=== PATIENT | female | born 1950 | race Caucasian/White ===

== ENCOUNTER → 2017-12-15 | Outpatient (CLI) | payer MEDICARE, BC ==
[~2017-12-15] MED LIST: FISH OIL 1,001000 M2 PO; LISINOPRIL-HCT1 EAC1 PO; PRILOSEC 20 MG20 MG PO; PROTONIX40 M1 PO; SYNTHROID75 MCG PO
== END ==
LOC: M.ULTRA 10:00
DX: M79.89 Other specified soft tissue disorders (principal)

== ENCOUNTER 2018-03-17 09:35 | Observation (INO) | payer MEDICARE, BC ==
[~2018-03-17] VITALS: Ht 147.3 cm; Wt 71.7 kg
[2018-03-17 09:37] VITALS: BP 104/71
[2018-03-17] MEDS ORDERED: LISINOPRIL-HCT1 EAC1 PO (09:41)
[2018-03-17] MEDS ORDERED: FISH OIL 1,001000 M2 PO (09:41)
[2018-03-17] MEDS ORDERED: PRILOSEC 20 MG20 MG PO (09:41)
[2018-03-17] MEDS ORDERED: SYNTHROID75 MCG PO (09:41)
[2018-03-17 09:50] LABS: ABSOLUTE BASOPHILS 0.1 thou/uL (0.0-0.2); ABSOLUTE EOSINOPHILS 0.3 thou/uL (0.0-0.7); ABSOLUTE LYMPHOCYTES 2.6 thou/uL (0.8-5.3); ABSOLUTE MONOCYTES 0.8 thou/uL (0.0-1.2); ABSOLUTE NEUTROPHILS 4.7 thou/uL (1.6-8.1); EOSINOPHILS 3.1 %; HEMATOCRIT 44.2 % (37.0-47.0); HEMOGLOBIN 15.2 gm/dL (12.0-15.0); LYMPHOCYTES 30.7 %; MCH 29.5 pg (26.0-34.0); MCHC 34.4 g/dL (28.0-37.0); MCV 85.9 fL (80.0-100.0); MONOCYTES 9.5 %; MPV 6.4 fl. (7.2-11.1); NUCLEATED RBCS 0 /100WBC; PLATELET COUNT* 359 thou/uL (150-400); POLYS 55.7 %; RBC 5.15 mil/uL (4.20-5.00); RDW-CV 13.4 % (10.5-14.5); WBC 8.3 thou/uL (4.0-11.0)
[2018-03-17 09:57] LABS: ANION GAP 8 mmol/L (7-16); BUN 17 mg/dL (7-18); CALCIUM 8.8 mg/dL (8.5-10.1); CHLORIDE 92 mmol/L (98-107); CO2 28 mmol/L (21-32); CREATININE 1.1 mg/dL (0.6-1.3); GLUCOSE 119 mg/dL (70-99); POTASSIUM 3.9 mmol/L (3.5-5.1); SODIUM 128 mmol/L (136-145)
[2018-03-17 10:03] LABS: ALKALINE PHOSPHATASE 63 U/L (46-116); LIPASE 157 U/L (73-393); MAGNESIUM 1.6 mg/dL (1.8-2.4); SGOT 24 U/L (15-37); SGPT 37 U/L (30-65); TOTAL BILIRUBIN 0.6 mg/dL (<0.1-1.0); TOTAL PROTEIN 8.1 g/dL (6.4-8.2); TROPONIN-I LEVEL <0.06 ng/mL (<0.06)
[2018-03-17 12:05] VITALS: BP 97/51
--- NOTE | 2018-03-17 15:14 | EKG ---
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 : 1950 Requested By: Dk Rosales Order Number: [id number] MD: Unruly Albarado Measurements Intervals [place] Rate: 93 P: 71 FL: 152 QRS: 54 QRSD: 84 T: 34 QT: 333 QTc: 415 Interpretive Statements Sinus rhythm LAE, consider biatrial enlargement Low voltage, extremity and precordial leads Baseline wander in lead(s) V5 No previous ECG available for comparison Electronically Signed On 03-17-2018 15:14:40 CDT by Unruly Albarado [email or web address] <ELECTRONICALLY SIGNED> By: Unruly Albarado MD, [facility] 03/17/18 1514 0940 0940 Unruly Albarado MD, [facility] /EPI
[2018-03-17 15:16] VITALS: BP 90/53
--- NOTE | 2018-03-17 15:56 | 2DMMODE ---
[place] [address] 2 D/M-MODE ECHOCARDIOGRAM Name: TREY APODACA Room: [address] IN .R.#: [id number] Admission: 03/17/18 Attend Phys: Erickson Chapa Discharge: Date of : 48 Date of Service: 03/17/18 1556 Report #: [id number] THIS REPORT FOR: //name// APPROVED REPORT Study performed: 03/17/2018 14:11:33 EXAM: Comprehensive 2D, Doppler, and color-flow Echocardiogram Patient Location: Bedside BSA: 1.65 HR: 66 bpm BP: 97/51 mmHg Other Information Study Quality: Fair Indications Chest Pain 2D Dimensions LVEF(%): 67.14 (>50%) IVSd: 8.56 (7-11mm) LVOT Diam: 18.01 (18-24mm) LVDd: 37.49 mm PWd: 7.90 (7-11mm) Ascending Ao: 24.23 (22-36mm) LVDs: 23.78 (25-40mm) Aortic Root: 25.36 mm Vogel's LVEF: 67.14 % Volumes Left Atrial Volume (Systole) LA ESV Index: 18.80 mL/m2 Aortic Valve AoV Peak Wil.: 1.37 m/s AO Peak Gr.: 7.50 mmHg LVOT Max P.82 mmHg AO Mean Gr.: 3.01 mmHg LVOT Mean P.52 mmHg LVOT Max V: 1.21 m/s AO V2 VTI: 24.04 cm LVOT Mean V: 0.71 m/s GLORIA (VTI): 2.65 cm2 LVOT V1 VTI: 25.06 cm Mitral Valve E/A Ratio: 1.32 MV Decel. Time: 209.27 ms MV E Max Wil.: 0.87 m/[place] [address] 2 D/M-MODE ECHOCARDIOGRAM Name: TREY APODACA Room: [address] IN [facility]#: [id number] Admission: 03/17/18 Attend Phys: Erickson Chapa Discharge: Date of : 48 Date of Service: 03/17/18 1556 Report #: [id number] MV PHT: 60.69 ms MVA (PHT): 3.63 cm2 TDI E/Lateral E': 10.88 E/Medial E': 9.67 Medial E' Wil.: 0.09 m/s Lateral E' Wil.: 0.08 m/s Pulmonary Valve PV Peak Wil.: 0.86 m/s PV Peak Gr.: 2.98 mmHg Tricuspid Valve RAP Estimate: 5.00 mmHg TR Peak Gr.: 25.19 mmHg RVSP: 30.19 mmHg PA Pressure: 30.19 mmHg Left Ventricle The left ventricle is normal size. There is normal LV segmental wall motion. There is normal left ventricular wall thickness. Left ventricular systolic function is normal. LVEF is 60-65%. The left ventricular diastolic function is normal. Right Ventricle The right ventricle is normal size. The right ventricular systolic function is normal. Atria The left atrium size is normal. Lipomatous hypertrophy of the interatrial septum is noted. The right atrium size is normal. Aortic Valve The aortic valve is normal in structure. No aortic regurgitation is present. There is no aortic valvular stenosis. Mitral Valve The mitral valve is normal in structure. Trace mitral regurgitation. No evidence of mitral valve stenosis. Tricuspid Valve The tricuspid valve is normal in structure. Mild tricuspid regurgitation. Pulmonic Valve The pulmonary valve is normal in structure. [place] [address] 2 D/M-MODE ECHOCARDIOGRAM Name: TREY APODACA Room: [address] IN [facility]#: [id number] Admission: 03/17/18 Attend Phys: Erickson Chapa Discharge: Date of : 48 Date of Service: 03/17/18 1556 Report #: [id number] Great Vessels The aortic root is normal in size. IVC is normal in size and collapses with >50% inspiration Pericardium There is no pericardial effusion. <Conclusion> The left ventricle is normal size. There is normal left ventricular wall thickness. Left ventricular systolic function is normal. LVEF is 60-65%. The left ventricular diastolic function is normal. Mild tricuspid regurgitation. IVC is normal in size and collapses with >50% inspiration <ELECTRONICALLY SIGNED> By: Masoud Dias MD, [facility] 03/17/18 1556 1556 1556 Masoud Dias MD, FAC /INF
[2018-03-17 20:00] VITALS: BP 115/66
[2018-03-18 06:36] VITALS: BP 95/52
[2018-03-18 08:00] VITALS: BP 106/80
[2018-03-18] MEDS ORDERED: PROTONIX40 M1 PO (09:43)
[2018-03-18 12:12] VITALS: BP 112/61
[2018-03-18 14:32] VITALS: BP 112/61
[2018-03-18 15:51] VITALS: BP 96/51
--- NOTE | 2018-03-18 16:21 | CARDNUC ---
[place] [address] CARDIAC NUCLEAR IMAGING REPORT Name: TREY APODACA Room: [address]R.#: [id number] Admission: 03/17/18 Attend Phys: Erickson Chapa Discharge: Date of : 48 Date of Service: 03/18/18 1620 Report #: [id number] THIS REPORT FOR: //name// APPROVED REPORT Study performed: 03/17/2018 13:02:00 Indication: Chest pain Patient Location: In-Patient Room #: 228 Stress Tech: Verito Champion Stress Nurse: Arin Cueva RN Ht: 4 ft 10 in Wt: 158 lbs BSA: 1.65 m2 BMI: 33.01 Medical History Medical History: hyperlipidemia, hypertension, Medications: aspirin 325, lisinopril Allergies: erythromycin, tetracycline,levofloxacin Cardiac Risk Factors: age, hyperlipidemia, hypertension, tobacco Previous Cardiac Procedures: none Exercise History: Sedentary Resting Data Rest SPECT myocardial perfusion imaging was performed in supine position 30 minutes following the intravenous injection of 10.6 mCi of Tc-99m Sestamibi. Time of rest injection: 10:05 The images were gated to evaluate regional wall motion and calculate left ventricular ejection fraction. Administration Route: IV Administration Site: Left AC Pharmacologic Stress Pharmacologic stress test was performed by injecting Regadenoson 0.4 mg IV push over 10-15 seconds immediately followed by the intravenous injection of 33.6 mCi of Tc-99m Sestamibi. Time of stress injection: 11:45 Time of stress imagin:00 Administration Route: IV Administration Site: Left AC Heart Rate at time of stress injection: 104 bpm. The images were gated to evaluate regional wall [place] [address] CARDIAC NUCLEAR IMAGING REPORT Name: APODACATREY Room: [address]#: [id number] Admission: 03/17/18 Attend Phys: Erickson Chapa Discharge: Date of : 48 Date of Service: 03/18/18 1620 Report #: [id number] left ventricular ejection fraction. Prone imaging was performed. Stress Test Details Stress Test: Pharmacologic stress testing performed using 0.4 mg of regadenoson per 5 mL given IV over 10 seconds. Reversal agent Aminophyline 100 mg, given intravenously for nausea. HR Resting HR: 63 bpm Max Heart Rate (APMHR): 151 bpm Max HR Achieved: 104 bpm Target HR (85% APMHR): 128 bpm % of APMHR: 68 Recovery HR: 78 bpm BP Resting BP: 108/62 mmHg Max BP: 101/63 mmHg ECG Resting ECG: Sinus Rhythm, normal EKG Stress ECG: Sinus Tachycardia ST Change: None Arrhythmia: None Recovery ECG: Sinus Rhythm, normal EKG Recovery ST Change: None Recovery Arrhythmia: None Clinical Reason for Termination: Completed protocol Exercise duration: 0 min sec Exercise capacity: 1 METs The patient had hypotension related to medication the neck. She had no chest pain with Lexiscan infusion. Nurse Comments pt initial bp was 83/61 rechecked manually 108/70. iv bolus ns 200 ml given. pt given water to drink. pt bp was stable. aminophylline given for nausea Stress ECG Conclusion The baseline 12-lead electrocardiogram showed normal sinus rhythm with abnormalities. EKGs obtained during and post Lexiscan infusion showed sinus rhythm and sinus tachycardia with no significant ST or T wave changes when compared to baseline. There were no significant stress-[place] [address] CARDIAC NUCLEAR IMAGING REPORT Name: TREY APODACA [address]#: [id number] Admission: 03/17/18 Attend Phys: Erickson Chapa Discharge: Date of : 48 Date of Service: 03/18/18 1620 Report #: [id number] Study Quality Study: Good Artifact: No artifact Study Data At rest, the left ventricular ejection fraction was 82%.. Post stress, the left ventricular ejection was 89%.. TID = 1.21. Perfusion Normal left ventricular perfusion. Wall Motion Normal left ventricular wall motion. Nuclear Conclusion ECG Findings: negative for ischemia Clinical Findings: negative for ischemia Nuclear Findings: negative for ischemia Exercise Capacity: not assessed Left Ventricular Function: normal Risk Study: low Myocardial perfusion images show no defect to suggest infarct or ischemia. Left ventricular systolic function is normal on gated studies. This is a low risk study. <Conclusion> The baseline 12-lead electrocardiogram showed normal sinus rhythm with abnormalities. EKGs obtained during and post Lexiscan infusion showed sinus rhythm and sinus tachycardia with no significant ST or T wave changes when compared to baseline. There were no significant stress-induced arrhythmias. <ELECTRONICALLY SIGNED> By: Masoud Dias MD, FACC 03/18/18 1620 162 1620 Masoud Dias MD, FACC /INF
== END 2018-03-18 18:20 | disposition home or self-care (01) ==
LOC: M.ERS 09:35 → M.2W 10:53 → M.TBA-ER 10:53 → M.2W 12:12
PROVIDERS: Emergency Medicine Emergency Medical Services; ADMIT Internal Medicine
DX: K21.0 Gastro-esophageal reflux disease with esophagitis (principal); R07.9 Chest pain, unspecified; E87.1 Hypo-osmolality and hyponatremia; I10 Essential (primary) hypertension; E03.9 Hypothyroidism, unspecified; R06.02 Shortness of breath; F17.210 Nicotine dependence, cigarettes, uncomplicated; Z98.890 Other specified postprocedural states; Z90.710 Acquired absence of both cervix and uterus

== ENCOUNTER → 2018-06-08 | Outpatient (CLI) | payer MEDICARE, BC | LOC: M.ULTRA 07:56 | DX: R10.13 Epigastric pain (principal); I10 Essential (primary) hypertension; K21.9 Gastro-esophageal reflux disease without esophagitis; E03.9 Hypothyroidism, unspecified ==

== ENCOUNTER → 2018-07-13 | Outpatient (CLI) | payer MEDICARE, BC | LOC: M.NUC 07:33 | DX: R11.0 Nausea (principal); R10.9 Unspecified abdominal pain; R93.2 Abnormal findings on diagnostic imaging of liver and biliary tract; K21.9 Gastro-esophageal reflux disease without esophagitis; F17.210 Nicotine dependence, cigarettes, uncomplicated ==

== ENCOUNTER → 2019-07-26 | Outpatient (CLI) | payer MEDICARE, BC | LOC: M.RAD 06-29 15:00 | DX: Z12.31 Encounter for screening mammogram for malignant neoplasm of breast (principal); N91.2 Amenorrhea, unspecified; Z88.8 Allergy status to other drugs, medicaments and biological substances; Z78.0 Asymptomatic menopausal state ==

== ENCOUNTER 2019-09-18 10:02 | Inpatient (IN) | payer MEDICARE, BC ==
[~2019-09-18] VITALS: Ht 147.3 cm; Wt 71.7 kg
[2019-09-18 10:05] VITALS: BP 105/65
[2019-09-18 10:19] LABS: URINE BILIRUBIN NEGATIVE (Negative); URINE BLOOD NEGATIVE (Negative); URINE CLARITY CLEAR; URINE COLOR YELLOW; URINE GLUCOSE-RANDOM NEGATIVE (Negative); URINE KETONES NEGATIVE (Negative); URINE LEUKOCYTES-REFLEX NEGATIVE (Negative); URINE NITRITE-REFLEX NEGATIVE (Negative); URINE PROTEIN NEGATIVE (Negative); URINE UROBILINOGEN 0.2 E.U./dl (0.2-1.0)
[2019-09-18 10:41] LABS: ABSOLUTE BASOPHILS 0.1 thou/uL (0.0-0.2); ABSOLUTE EOSINOPHILS 0.1 thou/uL (0.0-0.7); ABSOLUTE MONOCYTES 0.6 thou/uL (0.0-1.2); ABSOLUTE NEUTROPHILS 5.4 thou/uL (1.6-8.1); BASOPHILS 1.2 %; HEMATOCRIT 42.6 % (37.0-47.0); HEMOGLOBIN 14.7 gm/dL (12.0-15.0); LYMPHOCYTES 24.2 %; MCH 29.7 pg (26.0-34.0); MCHC 34.6 g/dL (28.0-37.0); MONOCYTES 7.7 %; MPV 6.8 fl. (7.2-11.1); NUCLEATED RBCS 0 /100WBC; PLATELET COUNT* 330 thou/uL (150-400); POLYS 65.9 %; RBC 4.96 mil/uL (4.20-5.00); RDW-CV 13.3 % (10.5-14.5); WBC 8.3 thou/uL (4.0-11.0)
[2019-09-18 10:50] LABS: CALCIUM 8.8 mg/dL (8.5-10.1); CREATININE 0.9 mg/dL (0.6-1.3); POTASSIUM 3.2 mmol/L (3.5-5.1)
[2019-09-18 11:04] LABS: ALBUMIN 3.7 g/dL (3.4-5.0); TOTAL BILIRUBIN 0.6 mg/dL (<0.1-1.0); TOTAL PROTEIN 7.3 g/dL (6.4-8.2)
--- NOTE | 2019-09-18 14:34 | EKG ---
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: : 1950 Requested By: Ramin Reina Order Number: [id number] MD: Unruly Albarado Measurements Intervals [place] Rate: 75 P: 65 VT: 154 QRS: 45 QRSD: 79 T: 28 QT: 370 QTc: 414 Interpretive Statements Sinus rhythm Left atrial enlargement Low voltage, extremity and precordial leads Baseline wander in lead(s) III Compared to ECG 03/17/2018 09:40:02 No significant changes Electronically Signed On 09-18-2019 14:33:57 FIRE INSPECTOR by Unruly Albarado [email or web address] <ELECTRONICALLY SIGNED> By: Unruly Albarado MD, FAC 09/18/19 1433 1024 1024 Unruly Albarado MD, [facility] /EPI
[2019-09-18 16:55] VITALS: BP 110/39
[2019-09-18 17:34] VITALS: BP 110/39
[2019-09-18 19:30] VITALS: BP 108/55
[2019-09-19 04:12] LABS: ABSOLUTE BASOPHILS 0.1 thou/uL (0.0-0.2); ABSOLUTE EOSINOPHILS 0.2 thou/uL (0.0-0.7); ABSOLUTE LYMPHOCYTES 2.7 thou/uL (0.8-5.3); ABSOLUTE MONOCYTES 0.7 thou/uL (0.0-1.2); ABSOLUTE NEUTROPHILS 4.6 thou/uL (1.6-8.1); BASOPHILS 0.8 %; EOSINOPHILS 2.8 %; HEMOGLOBIN 13.9 gm/dL (12.0-15.0); LYMPHOCYTES 32.6 %; MCH 29.9 pg (26.0-34.0); MCHC 34.7 g/dL (28.0-37.0); MCV 86.3 fL (80.0-100.0); MONOCYTES 8.8 %; MPV 6.9 fl. (7.2-11.1); NUCLEATED RBCS 0 /100WBC; PLATELET COUNT* 334 thou/uL (150-400); RBC 4.63 mil/uL (4.20-5.00); RDW-CV 13.2 % (10.5-14.5); WBC 8.4 thou/uL (4.0-11.0)
[2019-09-19 04:28] LABS: CALCIUM 8.6 mg/dL (8.5-10.1); CREATININE 1.1 mg/dL (0.6-1.3); POTASSIUM 3.2 mmol/L (3.5-5.1)
[2019-09-19 07:15] VITALS: BP 109/60
[2019-09-19 10:14] VITALS: BP 109/60
[2019-09-19] MEDS ORDERED: CULTURELLE KID1 EAC1 PO (12:00)
[2019-09-19 15:45] VITALS: BP 109/60
--- NOTE | 2019-09-21 14:27 | CON ---
[address] [address] CONSULTATION Name: PAULIETREY HIEN Room: [address] IN M.R.#: [id number] Admission: 09/18/19 Attend Phys: Dawood Sotelo MD Discharge: 09/19/19 Date of : 48 Report #: [id number] THIS REPORT FOR: //name// CC: Dawood [facility] DICTATED BY: Maddy Vera [facility] DATE OF SERVICE: 09/19/2019 Please note at the time of this dictation, the patient was seen and physically examined by myself. REASON FOR CONSULTATION: Diverticulitis. HISTORY OF PRESENT ILLNESS: This is a pleasant 69-year-old female who initially had nausea and vomiting and diarrhea for about 3 days prior to this admission. She thought she had stomach flu and when she did not improve and started having some lower abdominal pain and continued with the diarrhea; however, her nausea and vomiting subsided, she prompted to come to the Emergency Room. The patient is scheduled for a colonoscopy later in October. She did have an upper scope in 2017 that showed a hiatal hernia and was completely otherwise normal and her CCK PIPIDA was normal at that time. She denied any blood in her vomitus or no bright red blood or black tarry stools in her diarrhea. She has had several loose stools, only 2 so far this morning and very minimal abdominal discomfort. ALLERGIES: TETRACYCLINE, LEVOFLOXACIN AND ERYTHROMYCIN. MEDICATIONS: From home include fish oil, lisinopril, and Synthroid. PAST MEDICAL HISTORY: GERD, hypertension, hypothyroidism. PAST SURGICAL HISTORY: Hysterectomy, cyst on her right breast removed and ganglion cyst in the left wrist. FAMILY HISTORY: Negative for any GI or female cancers. SOCIAL HISTORY: She smokes a fourth a pack every day. Past use of alcohol and denies any illegal drug use. REVIEW OF SYSTEMS: A 12-point review of systems is essentially negative except what is mentioned in the HPI. PHYSICAL EXAMINATION: VITAL SIGNS: Temperature 36.7, pulse 66, respirations 18, [place] [address] CONSULTATION Name: TREY APODACA Room: [address]#: [id number] Admission: 09/18/19 Attend Phys: Dawood Sotelo MD Discharge: 09/19/19 Date of : 48 Report #: [id number] 109/60. HEART: Regular rate and rhythm. LUNGS: Clear. ABDOMEN: Soft, positive bowel sounds in all 4 quadrants with very minimal left lower quadrant tenderness to palpation. LABORATORY DATA: Hemoglobin 13.9, white count 8.4, platelets 334. GFR is 49. CT showed acute diverticulitis in the sigmoid colon with no abscess noted. IMPRESSION: 1. Diarrhea. 2. Abdominal pain. 3. Acute diverticulitis of the sigmoid colon. PLAN: 1. Continue her Augmentin as an outpatient. 2. Low residue diet. 3. Recommend the patient get a probiotic and take daily. 4. The patient is already scheduled for a colonoscopy at the end of October and will keep this appointment at that time. If she should have any further problems once she gets out of the hospital, she can contact the office. Thank you for allowing us to participate in this patient's care. Please do not hesitate to call with any questions in regard to this consult. <ELECTRONICALLY SIGNED> By: Veronica Briceño MD 09/21/19 1427 1150 [id number] Briceño MD /nt
== END 2019-09-19 15:45 | disposition home or self-care (01) | DRG 392 ==
LOC: M.ERS 10:02 → M.TBA-ER 12:09 → M.ORTHSURG 12:09
PROVIDERS: Family Medicine; ADMIT Internal Medicine
DX: K57.32 Diverticulitis of large intestine without perforation or abscess without bleeding (principal); E87.1 Hypo-osmolality and hyponatremia; K21.9 Gastro-esophageal reflux disease without esophagitis; I10 Essential (primary) hypertension; E03.9 Hypothyroidism, unspecified; F17.210 Nicotine dependence, cigarettes, uncomplicated; E87.6 Hypokalemia; E86.0 Dehydration; Z82.49 Family history of ischemic heart disease and other diseases of the circulatory system; Z90.710 Acquired absence of both cervix and uterus; Z79.899 Other long term (current) drug therapy; Z88.1 Allergy status to other antibiotic agents; Z88.8 Allergy status to other drugs, medicaments and biological substances; Z23 Encounter for immunization

== ENCOUNTER → 2019-11-30 | Outpatient (CLI) | payer MEDICARE, BC ==
[~2019-11-30] MED LIST changes: +CULTURELLE KID1 EAC1 PO
== END ==
LOC: M.LAB 02:08
DX: E87.6 Hypokalemia (principal)